=== PATIENT | male | born 1945 | race Caucasian/White ===

== ENCOUNTER 2024-07-10 16:36 | Emergency (ER) | payer OTHER, MEDICARE ==
[~2024-07-10] VITALS: Ht 188 cm; Wt 85.6 kg
[2024-07-10] MEDS: LIDOcaine 1% W/epiNEPHrine 1:200,000 10ml vial IJ ONE (16:51)
[2024-07-10] MEDS: TETanus/Pertussis (Acell)/Diphther VAC/PF (Tdap-Adult) 0.5ml syringe IMVAC ONE (17:07)
[2024-07-10] MEDS: LIDOcaine 1% W/epiNEPHrine 1:100,000 20ml vial SQ ONE (17:17)
[2024-07-10] MEDS ORDERED: CEPH500C3 PO (18:06)
[2024-07-10 18:26] VITALS: BP 142/86; PULSE 73; RESP 16; TEMP 98; O2SAT 96
== END 2024-07-10 18:28 | disposition home or self-care (01) ==
LOC: ER 16:37
DX: S81.812A Laceration without foreign body, left lower leg, initial encounter (principal); S20.211A Contusion of right front wall of thorax, initial encounter; S00.432A Contusion of left ear, initial encounter; S00.83XA Contusion of other part of head, initial encounter; W19.XXXA Unspecified fall, initial encounter; Y93.89 Activity, other specified; Y92.89 Other specified places as the place of occurrence of the external cause; Y99.8 Other external cause status
CPT/HCPCS: 12004; 71101; 90471; 90715; 99283; J7030; A6258; A6446; A6449